=== PATIENT | male | born 1980 | race African-American/Black ===

== ENCOUNTER 2022-02-27 22:18 | Emergency (ER) | payer OTHER, SELFPAY | END 2022-02-27 22:41 | disposition home or self-care (01) | LOC: BURERS 22:18 | DX: S51.811D Laceration without foreign body of right forearm, subsequent encounter (principal) ==

== ENCOUNTER 2022-03-08 07:21 | Emergency (ER) | payer SELFPAY | END 2022-03-08 08:19 | disposition home or self-care (01) | LOC: BURERS 07:21 | DX: J02.9 Acute pharyngitis, unspecified (principal); Z20.822 Contact with and (suspected) exposure to COVID-19; F17.200 Nicotine dependence, unspecified, uncomplicated | CPT/HCPCS: 99283; U0003; U0005 ==